=== PATIENT | male | born 1945 | race Caucasian/White ===

== ENCOUNTER 2016-04-22 08:18 | Day surgery (SDC) ==
[2016-04-22] MEDS ORDERED: NS IV ONE (10:30)
[2016-04-22] MEDS ORDERED: AVASTIN IV ONE (10:30)
[2016-04-22 11:41] VITALS: BP 163/98
== END 2016-04-22 11:38 | disposition home or self-care (01) ==
LOC: INF 08:18 → 3S 09:28 → INF 11:38
PROVIDERS: ATTEND Internal Medicine Hematology & Oncology
DX: Z51.11 Encounter for antineoplastic chemotherapy (principal); C18.9 Malignant neoplasm of colon, unspecified
CPT/HCPCS: J9035

== ENCOUNTER 2016-06-19 08:18 | Day surgery (SDC) ==
[2016-06-19] MEDS ORDERED: AVASTIN IV ONE (09:00)
[2016-06-19] MEDS ORDERED: NS IV ONE ×2 (09:00→09:45)
[2016-06-19] MEDS ORDERED: ZOFRAN IV ONE (09:45)
[2016-06-19 11:18] VITALS: BP 167/85
== END 2016-06-19 11:16 | disposition home or self-care (01) ==
LOC: INF 08:18
PROVIDERS: ATTEND Internal Medicine Hematology & Oncology
DX: Z51.11 Encounter for antineoplastic chemotherapy (principal); C18.9 Malignant neoplasm of colon, unspecified; Z79.899 Other long term (current) drug therapy; Z79.01 Long term (current) use of anticoagulants
CPT/HCPCS: 96366; 96413; J2405; J9035